=== PATIENT | male | born 1975 | race Caucasian/White ===

== ENCOUNTER 2016-07-17 00:59 | Emergency (ER) | payer OTHER, MEDICAID ==
[2016-07-17] MEDS ORDERED: Sulfamethoxazole/TMP 800/160mg Tab PO ONE ×2 (01:02)
[2016-07-17] MEDS ORDERED: Sulfamethoxazole/TMP 800/160mg Tab ONE (01:11)
--- NOTE | 2016-07-17 01:19 | ED Physician Chart ---
Chief Complaint/HPI - Patient Information Date Seen:: 07/17/16 Time Seen:: 01:00 Chief Complaint:: INFECTION OF THE LEFT UPPER ARM History of Present Illness:: THIS IS A 41 YEAR OLD MALE WHO IS CONCERNED ABOUT A LARGE INFECTED INSECT BITE LIKE LESION THAT STARTED SEVERAL DAYS AGO. HE DENIES HAVING DIABETES, HE DENIES USING DRUG WITH NEEDLES. HE ADMITS THAT IN THE PAST HE USED DRUG SOME TIME AGO. HE ADMITS TO SMOKING BUT NOT THC. HE DENIES ALL OTHER MEDICAL PROBLEMS. Allergies:: Allergies Allergy/AdvReac Type Severity Reaction Status Date / Time No Known Allergies Allergy Verified 07/17/16 01:11 Historian:: Patient Review:: Nurse's Note Reviewed Review of Systems - Review of Systems General/Constitutional: No fever, No chills, No weight loss, No weakness, No diaphoresis, No edema, No loss of appetite Skin: Skin lesions (LEFT UPPER ARM INFECTION), No rash, No bruising Head: No headache, No light-headedness Eyes: No loss of vision, No pain, No diplopia ENT: No earache, No nasal drainage, No sore throat, No tinnitus Neck: No neck pain, No swelling, No thyromegaly, No stiffness, No mass noted Cardio Vascular: No chest pain, No palpitations, No PND, No orthopnea, No edema Pulmonary: No SOB, No cough, No sputum, No wheezing GI: No nausea, No vomiting, No diarrhea, No pain, No melena, No hematochezia, No constipation, No hematemesis G/U: No dysuria, No frequency, No hematuria Musculoskeletal: No bone or joint pain, No back pain, No muscle pain Endocrine: No polyuria, No polydipsia Psychiatric: No prior psych history, No depression, No anxiety, No suicidal ideation Hematopoietic: No bruising, No lymphadenopathy Allergic/Immuno: No urticaria, No angioedema Neurological: No syncope, No focal symptoms, No weakness, No paresthesia, No headache, No seizure, No dizziness, No confusion, No vertigo Past Medical History - Past Medical History Obtainable: Yes Past Medical History: No significant medical hx Family History: None Social History: Smoker, Alcohol, Illicit Drug Use Surgical History: None Psychiatricy History: None Physical Exam - Physical Examination General/Constitutional: Awake, Well-developed, well-nourished, Alert, No distress, GCS 15, Non-toxic appearing, Ambulatory Head: Atraumatic Eyes: Lids, conjuctiva normal, PERRL, EOMI Skin: Nl inspection, No rash, No ecchymosis, Well hydrated, No lymphadenopathy Other Skin comments:: THERE IS A LARGE RED MRSA LIKE LESION ON THE LEFT LATERAL HUMERUS AREA THAT IS RED, TENDER, WARM AND ABOUT 3CM IN DIAMETER. ENMT: External ears, nose nl, Nasal exam nl, Lips, teeth, gums nl Neck: Nontender, Full ROM w/o pain, No JVD, No nuchal rigidity, No bruit, No mass, No stridor Respiratory: Nl effort/Exclusion, Clear to Auscultation, No Wheeze/Rhonchi/Rales Cardio Vascular: RRR, No murmur, gallop, rubs, NL S1 S2 GI: No tenderness/rebounding/guarding, No organomegaly, No hernia, Normal BS's, Nondistended, No mass/bruits, No McBurney tenderness : No CVA tenderness Extremities: No tenderness or effusion, Full ROM, normal strength in all extremities, No edema, Normal digits & nails Neuro/Psych: Alert/oriented, DTR's symmetric, Normal sensory exam, Normal motor strength, Judgement/insight normal, Mood normal, Normal gait, No focal deficits Misc: normal gait, Normal back, No paraspinal tenderness ED Septic Shock - . Is Septic Shock (SBP<90, OR Lactate>4 mmol\L) present?: No Reassessment (Disposition) - Reassessment Reassessment Condition:: Unchanged - Diagnosis Diagnosis:: LEFT UPPER ARM INFECTION(MRSA) - Aftercare/Follow up Instructions Aftercare/Follow-Up Instructions:: Counseled pt regarding lab results/diagnosis & need follow up, Refer to Discharge Instructions, Counseled pt & family regarding lab results/diagnosis & need follow up Medication Prescribed:: [id number], BACTRIM DS - Patient Disposition Discharge/Transfer:: Home Condition at Disposition:: Improved ED Discharge Plan - Patient Disposition Admit/Discharge/Transfer: PT DISCHARGED HOME Condition at Disposition: Improved
== END 2016-07-17 02:55 | disposition home or self-care (01) ==
LOC: ER 00:59
DX: L02.414 Cutaneous abscess of left upper limb (principal); F17.200 Nicotine dependence, unspecified, uncomplicated
CPT/HCPCS: 99284; 96372; 87075; 87205; 87070; 90715; J0696; Z7502